=== PATIENT | male | born 1950 | race Caucasian/White ===

== ENCOUNTER 2024-08-17 17:21 | Emergency (ER) | payer MEDICARE, BC, SELFPAY ==
[2024-08-17 17:27] VITALS: BP 140/81; PULSE 88; RESP 20; TEMP 37.2; O2SAT 95; BMI 42.5
--- NOTE | 2024-08-17 18:26 | PD.EDMALE ---
ED Male Genitalurinary RME/HPI General Chief complaint: Urogenital-Male Stated complaint: CATHETER CHANGE Time Seen by Provider: 08/17/24 17:28 Arrival date/time: 08/17/24 17:21 RME / HPI RME / HPI Narrative: 74-year-old male patient presents to the emergency department complaint of needing urine catheter change. Patient states he usually changes his catheter every 9 to 30 days and it is due for change. He denies fever or chills he denies blood in his urine. He denies any aggravating or alleviating factors he denies any new complaints. Related Data Allergies Allergy/AdvReac Type Severity Reaction Status Date / Time No Known Allergies Allergy Verified 08/17/24 17:25 Review of Systems Review of Systems Systems Reviewed: All systems reviewed, normal except as documented Constitutional Constitutional: Reports system reviewed and no additional complaints, except as documented Cardiovascular Cardiovascular: Reports system reviewed and no additional complaints, except as documented Genitourinary Genitourinary: Reports other (de in place) Musculoskeletal Musculoskeletal: Reports system reviewed and no additional complaints, except as documented Psychiatric Psychiatric: Reports system reviewed and no additional complaints, except as documented ED Exam General General appearance: Present alert and in no apparent distress Head Head exam: Present atraumatic and normocephalic ENT ENT exam: Present normal exam and normal oropharynx Chest Chest inspection: Present normal inspection Respiratory Respiratory exam: Absent respiratory distress Cardiovascular Cardiovascular exam: Absent JVD Expanded Exam exam: Present other (de present) Course Quality Measures none Orders Category Date Time Status Catheter [Urinary Catheter] QS Care 08/17/24 18:25 Active Vital Signs Vital signs: Vital Signs Temperature 98.9 F 08/17/24 17:27 Pulse Rate 88 08/17/24 17:27 Respiratory Rate 20 08/17/24 17:27 Blood Pressure 140/81 H 08/17/24 17:27 Pulse Oximetry (%) 95 08/17/24 17:27 Oxygen Delivery Method Room Air 08/17/24 17:27 Urogenital - Male MDM Narrative MDM Narrative:: 74-year-old male patient presents to ED for de catheter change, patient denies any new complaints Patient data External records reviewed:: None Clinical information provided by:: patient Social determinants that could affect healthcare access:: none Patient has the following chronic illnesses:: urinary dysfunction How is presenting disease/condition affected by chronic disease/condition?: exacerbated by Evaluation data The following diagnostics were reviewed and interpreted by me:: other (specify) (n/a) Lab and/or radiology exams considered but not ordered:: n/a Interpretation Summary: n/a Medications / Prescriptions Medications or Prescriptions considered but not ordered:: n/a Medication administrations:: n/a Consultations Consultation(s) initiated? (list below): No Diagnosis Urogenital Male Differential Diagnosis: urinary tract infection, priapism, urethritis, epididymitis, genital herpes simplex, prostatitis and acute retention of urine Most likely diagnosis given after review of the tests above:: de catheter change Admission Indicated Admission indicated?: not indicated Admission Request Was there a request for admission?: No Disposition Plan Disposition Plan: Discharge Discharge Attestation Discharge Attestation: The patient and all family members were given an opportunity to ask questions and understood the discharge instructions. Discharge instructions specifically effects, indications for sooner follow up or return to the emergency department, and the expected course of current diagnosis. Patient condition: Stable Discharge Plan Plan Patient Disposition: HOME (Self Care) Problem List Clinical Impression: Encounter for De catheter replacement Patient/Caregiver Discharge Instructions Print Language: Icelandic Stand Alone Forms: [facility] Award Info., Patient Portal Info Letter
== END 2024-08-17 19:25 | disposition home or self-care (01) ==
LOC: SERX 18:33
PROVIDERS: Emergency Provider Emergency Medicine
DX: Z46.6 Encounter for fitting and adjustment of urinary device (principal)
CPT/HCPCS: 51702; 99283